=== PATIENT | male | born 1940 | race Caucasian/White ===

== ENCOUNTER 2017-02-20 20:20 | Emergency (ER) | payer BC, MEDICARE ==
[~2017-02-20 20:20] MED LIST: ASPI81TA82 PO; CALC625 PO; CHONDROITIN OR; GLUCCAP27 OR; MELO7.5; RAPA8CAP OR; TAB-TAB PO
[2017-02-20 20:29] VITALS: BP 119/68; PULSE 87; RESP 16; TEMP 98; O2SAT 96
[2017-02-20] MEDS ORDERED: CALC1TAB69 PO (20:47)
[2017-02-20] MEDS ORDERED: PRAV40TA2 PO (20:47)
[2017-02-20] MEDS ORDERED: MULT-65 PO (20:47)
[2017-02-20] MEDS ORDERED: GLUC500T4 PO (20:47)
[2017-02-20] MEDS ORDERED: ASPI325T PO (20:47)
[2017-02-20] MEDS ORDERED: LIDOCAINE HCL 1% 50 ML VIAL INFIL ONE (21:45)
[2017-02-20] MEDS ORDERED: TETANUS/DIPHTHERIA TOXOID ADULT 0.5 ML VIAL IM ONE (21:45)
--- NOTE | 2017-02-20 22:49 | RADRPT ---
EXAM DATE/TIME: 02/20/2017 22:19 [facility] COMPARISON: No previous studies available for comparison. INDICATIONS : Laceration to foot post fall. MEDICAL HISTORY : None. SURGICAL HISTORY : None. ENCOUNTER: Initial ACUITY: 1 day PAIN SCORE: 6/10 LOCATION: Left Foot. FINDINGS: Three view examination of the left foot demonstrates no soft tissue swelling, dislocation, or fractur e. The tarsal bones appear intact. The interphalangeal and metatarsophalangeal joints are intact. The calcaneus is intact. Irregular moderately prominent posterior calcaneal spur. Bony mineralizat ion is normal. There are 2 densities in the plantar medial soft tissues superficial to the calcaneus, one measures 2 mm and appears to be metallic in the other is of intermediate density. CONCLUSION: 1. No fracture seen. 2. 2 small densities in the plantar hindfoot soft tissues may represent retained foreign bodies. One of the densities appears to be metallic. Basim Stein MD on February 20, 2017 at 22:41 Board Certified Radiologist. This report was verified electronically.
--- NOTE | 2017-02-20 22:50 | PD ---
HPI . Laceration to left foot Chief Complaint: Laceration/Skin Injury Time Seen by Provider: 21:08 Travel History International Travel<30 days: No Contact w/Intl Traveler<30days: No Traveled to known affect area: No History of Present Illness HPI 76-year-old male patient presents emergency department for evaluation of a laceration he sustained to the left foot, fourth digit on the left foot laceration and an laceration/skin tear he sustained to the left knee. The patient sustained his injuries when he fell into a glass table while intoxicated at a cocktail constitution party. Patient denies any center losing consciousness in the fall. Patient denies any other injuries besides the left foot laceration and left knee laceration/skin tear. Patient's only major medical history TIA and hyperlipidemia. Patient takes a full aspirin daily and a statin medication. Patient has a fevers, chills, chest pain, shortness breath. The left foot is neurovascularly intact and has full range of motion. Patient is still intoxicated and is happily and mildly joking with staff. FOR[facility]LY [facility] Past Medical History High Cholesterol: Yes Cerebrovascular Accident: Yes Tetanus Vaccination: Unknown Influenza Vaccination: Yes ?: Not Past Surgical History Genitourinary Surgery: Yes (TURP ) Oral Surgery: Yes (tonsils ) Social History Alcohol Use: Yes (daily) Tobacco Use: No Substance Use: No Allergies-Medications (Allergen,Severity, Reaction): Coded Allergies: No Known Allergies (Unverified , 02/20/17) Reported Meds & Prescriptions Reported Meds & Active Scripts Active Reported Pravastatin 40 Mg Tab 40 Mg PO DAILY Multi-Vitamin Daily (Multiple Vitamin) 1 Tab Tab 1 Tab PO DAILY Glucosamine-Chondroitin 500-400 Mg Tab 1 Tab PO DAILY Calcium Polycarbophil 625 Mg Tab 625 Mg PO DAILY Aspirin 325 Mg Tab 325 Mg PO DAILY Review of Systems Except as stated in HPI: all other systems reviewed are Neg Physical Exam Narrative GENERAL: Well-nourished, well-developed 76-year-old male patient in no acute distress. Patient appears to be intoxicated happily and joking loudly. SKIN: 1 cm laceration noted to the dorsal aspect of the left foot. Large laceration/skin tear noted to the lateral aspect of the left knee. 0.5 cm laceration to the fourth digit on the left foot. NEUROLOGICAL: Awake and alert. Cranial nerves II through XII intact. Motor and sensory grossly within normal limits. Five out of 5 muscle strength in all muscle groups. Normal speech. HEAD: Normocephalic. Atraumatic. EYES: No scleral icterus. No injection or drainage. NECK: Supple, trachea midline. No JVD or lymphadenopathy. CARDIOVASCULAR: Regular rate and rhythm without murmurs, gallops, or rubs. RESPIRATORY: Breath sounds equal bilaterally. No accessory muscle use. GASTROINTESTINAL: Abdomen soft, non-tender, nondistended. MUSCULOSKELETAL: Left knee mildly edematous. No obvious deformity noted. BACK: Nontender without obvious deformity. No CVA tenderness. Data Data Last Documented VS Vital Signs Date Time Temp Pulse Resp B/P (MAP) Pulse Ox O2 Delivery O2 Flow Rate FiO2 02/20/17 20:29 98.0 87 16 119/68 (85) 96 Orders Orders Tetanus/Diphtheria Tox Adult (Tetanus/Di (02/20/17 21:45) Foot, Complete ([id number]) (02/20/17 21:39) Knee, Complete (4vws) (02/20/17 21:39) Lidocaine 1% Inj (50 Ml) (Xylocaine 1% I (02/20/17 21:45) MDM Medical Decision Making Medical Screen Exam Complete: Yes Emergency Medical Condition: Yes Differential Diagnosis Differential diagnosis as include but not limited to laceration, abrasion, fall , cellulitis Narrative Course 76-year-old male patient presents emergency department for evaluation of laceration he sustained on the dorsal aspect of his left foot and an abrasion he sustained to his left knee when falling into a glass table at a cocktail constitution party while intoxicated. Patient denies any head or losing consciousness. Patient is neurovascularly intact. Patient has no focal neurological deficit. Patient is not up-to-date on his tetanus. Patient's tetanus will be updated during this visit. The laceration on the dorsal aspect of left foot is approximately 1 cm in length. The laceration/skin tear on the lateral aspect of the left knee is larger measuring 3 cm 2 cm and partially macerated skin that is unable to be fully approximated. The area of the skin tear laceration will be repaired. Please see my procedural narrative for details. The patient requests that we repair the wounds without using sutures if possible. The left foot laceration was repaired using Dermabond. And left fourth digit toe 0.5 similar laceration will be repaired using Dermabond. Patient will be discharged home with instructions to follow-up with primary care and return the emergency Department with any worsening condition or signs or symptoms of infection. Procedures Procedure Narrative LACERATION LOCATION: Lateral aspect of left knee LENGTH: 4 cm NUMBER OF STITCHES/CHARLES: 4 x 3. 0 Prolene REPAIR: The area of the laceration was prepped with Betadine and sterilely draped. The laceration was infiltrated with Percent lidocaine. The wound was copiously irrigated and explored without evidence of foreign body, tendon injury or neurovascular injury. The wound was closed using 4 simple interrupted sutures using 3. 0 Prolene. This was a single layer repair. A sterile dressing was applied. The patient was advised to keep the dressing clean and dry. Patient tolerated the procedure well.. Diagnosis Primary Impression: Laceration of foot Qualified Codes: S91.312A - Laceration without foreign body, left foot, initial encounter Additional Impression: Fall Qualified Codes: W19.XXXA - Unspecified fall, initial encounter Referrals: Primary Care Physician Patient Instructions: Fall Prevention for Children (GEN), General Instructions , Laceration (ED) Additional Instructions: Please return to emergency department if your symptoms return or worsen. Follow up with your primary care provider. Keep wound clean and dry. Elevate left foot when resting. May apply ice for pain and swelling. May use [id number] ibuprofen as needed for pain and swelling. Disposition: 01 DISCHARGE HOME Condition: Stable JersonPily ireland Breann HARDY Feb 20, 2017 22:50
--- NOTE | 2017-02-20 23:09 | RADRPT ---
EXAM DATE/TIME: 02/20/2017 22:19 [facility] COMPARISON: No previous studies available for comparison. INDICATIONS : Laceration to foot post fall. MEDICAL HISTORY : None. SURGICAL HISTORY : None. ENCOUNTER: Initial ACUITY: 1 day PAIN SCORE: 6/10 LOCATION: Left Knee. FINDINGS: 4 view examination of the knee demonstrates the osseous structures in normal alignment. No fracture seen. There is fullness and possible distention of the suprapatellar soft tissues; a knee effusion c annot be excluded. Bandage material is seen about the lateral aspect of the knee. No radiopaque for eign body seen. CONCLUSION: 1. No evidence of fracture or dislocation. 2. Possible knee effusion. Basim Stein MD on February 20, 2017 at 23:07 Board Certified Radiologist. This report was verified electronically.
== END 2017-02-21 00:18 | disposition home or self-care (01) ==
LOC: PHEFT 20:20
DX: S91.312A Laceration without foreign body, left foot, initial encounter (principal); E78.5 Hyperlipidemia, unspecified; E78.00 Pure hypercholesterolemia, unspecified; W18.00XA Striking against unspecified object with subsequent fall, initial encounter; Z23 Encounter for immunization; Z86.73 Personal history of transient ischemic attack (TIA), and cerebral infarction without residual deficits; Z79.82 Long term (current) use of aspirin; Z79.899 Other long term (current) drug therapy
CPT/HCPCS: 12002; 73564; 73630; 90471; 90714